=== PATIENT | male | born 1935 | race Hispanic/Latino ===

== ENCOUNTER 2017-11-21 10:09 | Emergency (ER) | payer MEDICARE ==
[~2017-11-21] VITALS: Ht 152.4 cm; Wt 68.0 kg
[2017-11-21] MEDS ORDERED: FAMOTIDINE 20 MG TAB PO ONE (10:15)
[2017-11-21 10:28] VITALS: BP 170/87
[2017-11-21] MEDS ORDERED: LORATADINE 10 MG TAB PO ONE (10:35)
== END 2017-11-21 11:28 | disposition home or self-care (01) ==
LOC: ER 10:09
DX: L50.9 Urticaria, unspecified (principal); T78.40XA Allergy, unspecified, initial encounter
CPT/HCPCS: 99283

== ENCOUNTER 2018-02-09 12:27 | Emergency (ER) | payer MEDICARE ==
[~2018-02-09] VITALS: Ht 152.4 cm; Wt 68.0 kg
--- NOTE | 2018-02-09 14:48 | Diagnostic Imaging Report ---
LEFT ANKLE X-RAY - 3 VIEWS HISTORY: \S\trauma \[id number] \S\1400 COMPARISON: None available. FINDINGS: Bones: No acute displaced fracture. Osseous alignment is within normal limits. Joints: The joint spaces are well-maintained. Soft tissues: Diffuse vascular calcifications. IMPRESSION: No acute radiographic abnormality. Signed by: Dr. Brenna Handley M.D. on 02/09/2018 2:45 PM
--- NOTE | 2018-02-09 14:48 | Diagnostic Imaging Report ---
LEFT KNEE X-RAY - 3 VIEWS HISTORY: \S\abrasion, fall last night, knee pain \[id number] \S\1400 COMPARISON: None available. FINDINGS: Bones: No acute displaced fracture. Osseous alignment is within normal limits. 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 There appears to be a trace suprapatellar effusion. Soft tissues: Soft tissue swelling surrounding the left knee. Mild diffuse vascular calcifications. IMPRESSION: Soft tissue swelling surrounding the left knee without acute displaced fractures. Possible trace suprapatellar effusion. Signed by: Dr. Brenna Handley M.D. on 02/09/2018 2:44 PM
--- NOTE | 2018-02-09 14:56 | Diagnostic Imaging Report ---
History:Dizziness, fall Comparison studies:None Technique: Axial images were obtained from the skull base to the vertex. Coronal and sagittal images reconstructed from the axial data. Intravenous contrast: None Findings: Scalp/skull: No abnormalities. Extra-axial spaces: No masses. No fluid collections. Brain sulci: Mild to moderate prominence. Ventricles: Mild to moderate compensatory dilatation. No hydrocephalus. Parenchyma: Scattered hypodensities in the supratentorial white matter are small vessel ischemic changes. No masses, hemorrhage, acute or chronic cortical vascular insults. Sellar/suprasellar region: No abnormalities. Craniocervical junction: Patent foramen magnum. No Chiari one malformation. Incidental findings: Atherosclerotic calcifications in the carotid siphons . Impression: No acute abnormalities. Chronic findings: 1. Mild generalized volume loss. 2. Mild supratentorial white matter small vessel ischemic changes. Signed by: DR Faizan Matias M.D. on 02/09/2018 2:53 PM
== END 2018-02-09 15:44 | disposition home or self-care (01) ==
LOC: ER 12:27
DX: S80.212A Abrasion, left knee, initial encounter (principal); S80.02XA Contusion of left knee, initial encounter; R42 Dizziness and giddiness; W01.0XXA Fall on same level from slipping, tripping and stumbling without subsequent striking against object, initial encounter; Y92.008 Other place in unspecified non-institutional (private) residence as the place of occurrence of the external cause; I10 Essential (primary) hypertension; E78.5 Hyperlipidemia, unspecified
CPT/HCPCS: 70450; 99284

== ENCOUNTER 2019-02-15 13:52 | Emergency (ER) | payer MEDICARE ==
[~2019-02-15] VITALS: Ht 152.4 cm; Wt 68.0 kg
--- OUTSIDE RECORDS SUMMARY | 2019-02-15 13:55 | XMS REPORT ---
[facility] Address Unknown Phone Unavailable Care Team Providers [employer] Name Role Phone NICKALEXISFedeIAN Unavailable Unavailable Problems This patient has no known problems. Allergies, Adverse Reactions, Alerts This patient has no known allergies or adverse reactions. Medications This patient has no known medications. Results Test Description Test Time Test Comments Text Results Atomic Results Result Comments CT BRAIN WO 2018-02-09 14:50:00 [place] [id number] Patient Name: MAKI PARKER MR #: [id number] : 1935 Age/Sex: 82/M Req #: [id number] Adm Physician: Ordered by: ANCA SARAH HAT DESIGNER Report #: [id number] Location: ER Room/Bed: Procedure: [id number] CT/CT BRAIN WO Exam Date: 02/09/18 Exam Time: 1350 REPORT STATUS: Signed ADDENDUM #1 Dose modulation, iterative reconstruction, and/or weight based adjustment of the mA/kV was utilized to reduce the radiation dose to as low as reasonably achievable. Signed by: DR Faizan Matias M.D. on 03/12/2018 7:53 PM ORIGINAL REPORT History:Dizziness, fall Comparison studies:None Technique: Axial images were obtained from the skull base to the vertex. Coronal and sagittal images reconstructed from the axial data. Intravenous contrast: None Findings: Scalp/skull: No abnormalities. Extra-axial spaces: No masses. No fluid collections. Brain sulci: Mild to moderate prominence. Ventricles: Mild to moderate compensatory dilatation. No hydrocephalus. Parenchyma: Scattered hypodensities in the supratentorial white matter are small vessel ischemic changes. No masses, hemorrhage, acute or chronic cortical vascular insults. Sellar/suprasellar region: No abnormalities. Craniocervical junction: Patent foramen magnum. No Chiari one malformation. Incidental findings: Atherosclerotic calcifications in the carotid siphons . Impression: No acute abnormalities. Chronic findings: 1. Mild generalized volume loss. 2. Mild supratentorial white matter small vessel ischemic changes. Signed by: DR Faizan Matias M.D. on 02/09/2018 2:53 PM Dictated By: FAIZAN BALDERAS MD 52 Transcribed By: MADIHA on 02/09/18 1453 COPY TO: ANCA SARAH HAT DESIGNER ANKLE 3+ VIEWS LEFT 2018-02-09 14:44:00 [place] [address] Patient Name: MAKI PARKER MR #: [id number] : 1935 Age/Sex: 82/M Req #: [id number] Adm Physician: Ordered by: ANCA SARAH NP Report #: [id number] Location: ER Room/Bed: Procedure: [id number] DX/ANKLE 3+ VIEWS LEFT Exam Date: 02/09/18 Exam Time: 1400 REPORT STATUS: Signed LEFT ANKLE X-RAY - 3 VIEWS HISTORY: COMPARISON: None available. FINDINGS: Bones: No acute displaced fracture. Osseous alignment is within normal limits. Joints: The joint spaces are well-maintained. Soft tissues: Diffuse vascular calcifications. IMPRESSION: No acute radiographic abnormality. Signed by: Dr. Shelley Martinez M.D. on 02/09/2018 2:45 PM Dictated By: SHELLEY MARTINEZ MD 144 Transcribed By: MADIHA on 02/09/18 144 COPY TO: ANCA SARAH NP KNEE LEFT THREE VIEWS 2018-02-09 14:43:00 [place] [address] Patient Name: MAKI PARKER MR #: [id number] : 1935 Age/Sex: 82/M Req #: [id number] Adm Physician: Ordered by: ANAC SARAH NP Report #: [id number] Location: ER Room/Bed: Procedure: [id number] DX/KNEE LEFT THREE VIEWS Exam Date: 02/09/18 Exam Time: 1400 REPORT STATUS: Signed LEFT KNEE X-RAY - 3 VIEWS HISTORY: COMPARISON: None available. FINDINGS: Bones: No acute displaced fracture. Osseous alignment is within normal limits. 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 There appears to be a trace suprapatellar effusion. Soft tissues: Soft tissue swelling surrounding the left knee. Mild diffuse vascular calcifications. IMPRESSION: Soft tissue swelling surrounding the left knee without acute displaced fractures. Possible trace suprapatellar effusion. Signed by: Dr. Shelley Martinez M.D. on 02/09/2018 2:44 PM Dictated By: SHELLEY MARTINEZ MD 1445 Transcribed By: MADIHA on 02/09/18 1444 COPY TO: ANCA SARAH NP
--- NOTE | 2019-02-15 15:11 | Diagnostic Imaging Report ---
History:Dizziness, fall 2 weeks ago Comparison studies:CT head 02/09/2018 Technique: Axial images were obtained from the skull base to the vertex. Coronal and sagittal images reconstructed from the axial data. Intravenous contrast: None Findings: Scalp/skull: No abnormalities. Extra-axial spaces: No masses. No fluid collections. Brain sulci: Mild to moderate prominence. Ventricles: Mild to moderate compensatory dilatation. No hydrocephalus. Parenchyma: Scattered hypodensities in the supratentorial white matter are small vessel ischemic changes. No masses, hemorrhage, acute or chronic cortical vascular insults. Sellar/suprasellar region: No abnormalities. Craniocervical junction: Patent foramen magnum. No Chiari one malformation. Incidental findings: Atherosclerotic calcifications in the carotid siphons . Impression: No acute abnormalities. Stable exam. Chronic findings: 1. Mild generalized volume loss. 2. Mild to moderate supratentorial white matter small vessel ischemic changes. Signed by: DR Faizan Matias M.D. on 02/15/2019 3:08 PM
--- NOTE | 2019-02-15 15:16 | Diagnostic Imaging Report ---
History: Fall, neck pain Comparison studies: None Technique: Axial images were obtained through the cervical region.. Coronal and sagittal images reconstructed from the axial data.. Intravenous contrast: None Dose modulation, iterative reconstruction, and/or weight based adjustment of the mA/kV was utilized to reduce the radiation dose to as low as reasonably achievable. Findings: Fractures: None. Soft tissues: No gross abnormalities. Atlantoaxial articulation: Degenerative changes without acute abnormality. Alignment: Straightening of the normal lordosis. Grade 1 anterolisthesis of C7 over T1. No scoliosis. Cervicomedullary junction: No abnormalities. The foramen magnum is patent. Vertebrae: No infection or neoplasm. Degenerative changes: Decreased intervertebral space from C3. Through C7 with endplate sclerotic changes. Posterior disc osteophyte complexes at C4-5 and C5-6 results in mild canal stenosis. Uncinate process hypertrophy and facet hypertrophy results in multilevel degenerative foraminal narrowing, moderate bilateral at C3-4, mild bilateral at C4-5, moderate bilateral at C5-6, moderate left at C6-7. IMPRESSION: 1. No acute cervical spine abnormalities. 2. Cannot exclude ligament, spinal cord and or vascular abnormalities on the basis of this examination. Signed by: DR Faizan Matias M.D. on 02/15/2019 3:12 PM
[2019-02-15 16:24] VITALS: BP 152/77
== END 2019-02-15 16:28 | disposition home or self-care (01) ==
LOC: ER 13:52
DX: S00.03XA Contusion of scalp, initial encounter (principal); R42 Dizziness and giddiness; M54.2 Cervicalgia; W01.0XXA Fall on same level from slipping, tripping and stumbling without subsequent striking against object, initial encounter; Y92.008 Other place in unspecified non-institutional (private) residence as the place of occurrence of the external cause; I10 Essential (primary) hypertension; E78.5 Hyperlipidemia, unspecified
CPT/HCPCS: 70450; 72125; 93005; 99283

== ENCOUNTER 2024-10-31 19:16 | Emergency (ER) | payer MEDICARE ==
[~2024-10-31] VITALS: Ht 152.4 cm; Wt 68.0 kg
[2024-10-31 20:25] LABS: BASOPHILS % 0.4 % (0.0-1.0); EOSINOPHILS % 0.9 % (0.0-6.0); HEMATOCRIT 39.4 % (38.2-49.6); HEMOGLOBIN 13.2 g/dL (14.0-18.0); LYMPHOCYTES % 35.2 % (18.0-39.1); MEAN CORPUSCULAR HEMOGLOBIN 32.8 pg (28-32); MEAN CORPUSCULAR HGB CONC 33.5 g/dL (31-35); MONOCYTES % 8.4 % (4.4-11.3); NEUTROPHILS % 54.7 % (38.7-80.0); PLATELET COUNT 148 x10e3/uL (140-360); RED BLOOD COUNT 4.02 x10e6/uL (4.3-5.7); RED CELL DISTRIBUTION WIDTH 14.1 % (11.7-14.4); WHITE BLOOD COUNT 6.99 x10e3/uL (4.8-10.8)
[2024-10-31 20:26] LABS: EOSINOPHILS # (AUTO) 0.1 (0.0-0.4); LYMPHOCYTES # (AUTO) 2.5 (1.0-3.2); MONOCYTES # (AUTO) 0.6 (0.2-0.8); NEUTROPHILS # (AUTO) 3.8 (2.1-6.9)
[2024-10-31 20:45] LABS: CLARITY,URINE TURBID (CLEAR); COLOR,URINE YELLOW (YELLOW); GLUCOSE, URINE NEGATIVE (NEGATIVE); KETONES,URINE NEGATIVE (NEGATIVE); LEUKOCYTE ESTERASE ,URINE LARGE (NEGATIVE); NITRITE,URINE NEGATIVE (NEGATIVE); PH,URINE 6.5 (5 - 7); PROTEIN,URINE DIPSTICK 2+ (NEGATIVE); URINE UROBILINOGEN 1 mg/dL (0.2 - 1)
[2024-10-31 20:46] LABS: BILIRUBIN,URINE NEGATIVE (NEGATIVE)
[2024-10-31 20:48] LABS: ANION GAP 18.7 mmol/L (8-16); POTASSIUM 4.7 mmol/L (3.5-5.1)
[2024-10-31 20:48] LABS: BACTERIA,URINE MODERATE /HPF; WBC,URINE (MAN) >50 /HPF (0-5)
[2024-10-31 20:49] LABS: ALBUMIN 3.1 g/dL (3.5-5.0); ALBUMIN/GLOBULIN RATIO 0.9 (0.8-2.0); BILIRUBIN,TOTAL 0.8 mg/dL (0.2-1.2); CALCIUM 8.3 mg/dL (8.4-10.2); CREATININE, SERUM 1.84 mg/dL (0.72-1.25); TOTAL PROTEIN 6.4 g/dL (6.5-8.1)
[2024-10-31 22:40] VITALS: PULSE 60; RESP 15; TEMP 98
[2024-10-31] MEDS ORDERED: CEFDINIR300 MG PO (23:12)
[2024-10-31 23:17] VITALS: BP 136/60; PULSE 66; RESP 17; TEMP 97.9; O2SAT 100
== END 2024-10-31 23:30 | disposition home or self-care (01) ==
LOC: ER 19:58
DX: R33.9 Retention of urine, unspecified (principal); N39.0 Urinary tract infection, site not specified; N43.3 Hydrocele, unspecified; F03.90 Unspecified dementia, unspecified severity, without behavioral disturbance, psychotic disturbance, mood disturbance, and anxiety; I12.9 Hypertensive chronic kidney disease with stage 1 through stage 4 chronic kidney disease, or unspecified chronic kidney disease; N18.9 Chronic kidney disease, unspecified; E78.5 Hyperlipidemia, unspecified
CPT/HCPCS: 36415; 76870; 80053; 81001; 85025; 87086; 87186; 93976; 99283; J0696